=== PATIENT | male | born 1980 | race Caucasian/White ===

== ENCOUNTER → 2020-07-25 | Outpatient (CLI) | payer OTHER | END | disposition home or self-care (01) | LOC: STAR 10:59 | PROVIDERS: ATTEND Anesthesiology | DX: Z01.818 Encounter for other preprocedural examination (principal); Z20.828 Contact with and (suspected) exposure to other viral communicable diseases; M51.86 Other intervertebral disc disorders, lumbar region | CPT/HCPCS: 36415; 87635 ==

== ENCOUNTER 2020-07-31 10:32 | Day surgery (SDC) | payer OTHER ==
[~2020-07-31] VITALS: Ht 185.4 cm; Wt 109.1 kg
[~2020-07-31 10:32] MED LIST: BACITRACIN 50,000 UNIT ONE; BACITRACIN OINT 500U/GM, 15 GM ONE; BUPIVACAINE/PF 0.5% ONE; EPINEPHRINE 1 MG/ML, 1ML ONE; THROMBIN 20,000 UNIT VIAL TP ONE
[2020-07-31] MEDS ORDERED: VANCOMYCIN PMX 1GM/200ML 200 ML IV STA (10:49)
[2020-07-31] MEDS ORDERED: PLEASE ENTER ALLERGIES MC SCH (11:00)
[2020-07-31] MEDS ORDERED: PLEASE ENTER HEIGHT AND WEIGHT MC SCH (11:00)
[2020-07-31 11:06] VITALS: BP 130/72
[2020-07-31] MEDS ORDERED: CLARITIN PO (11:06)
[2020-07-31] MEDS ORDERED: NEXIUM PO (11:06)
[2020-07-31] MEDS ORDERED: LACTATED RINGERS 1,000 ML IV SCH ×2 (11:30→19:00)
[2020-07-31] MEDS ORDERED: CHLORHEXIDINE 15 ML UDC MM ONE (11:30)
[2020-07-31] MEDS ORDERED: MIDAZOLAM 1 MG/ML, 2ML ONE (12:56)
[2020-07-31] MEDS ORDERED: FENTANYL PF 250 MCG/5ML ONE ×2 (12:56→14:47)
[2020-07-31] MEDS ORDERED: ROCURONIUM 10MG/ML,5ML ONE (13:13)
[2020-07-31] MEDS ORDERED: PROPOFOL 10 MG/ML, 20ML ONE (13:13)
[2020-07-31] MEDS ORDERED: GLYCOPYRROLATE 0.2MG/1ML, 5ML ONE (13:13)
[2020-07-31] MEDS ORDERED: CEFAZOLIN 1,000 MG ONE (13:13)
[2020-07-31] MEDS ORDERED: NEOSTIGMINE 1 MG/ML, 10ML ONE (13:13)
[2020-07-31] MEDS ORDERED: ONDANSETRON 2MG/ML, 2ML IVPush PRN ×2 (14:00→19:30)
[2020-07-31] MEDS ORDERED: morphine SULFATE 10 MG/ML, 1ML IVPush PRN (14:00)
[2020-07-31] MEDS ORDERED: HYDROmorphone 1 MG/ML, 1ML INJ IVPush PRN (14:00)
[2020-07-31] MEDS ORDERED: hydrALAzine 20 MG/ML, 1ML IV PRN (14:00)
[2020-07-31] MEDS ORDERED: ACETAMINOPHEN 325 MG TABLET PO PRN (14:00)
[2020-07-31] MEDS ORDERED: MEPERIDINE/PF 25MG/0.5ML IVPush PRN (14:00)
[2020-07-31] MEDS ORDERED: OXYcodone 5 MG/5 ML ORAL.SOL UDC PO PRN (14:00)
[2020-07-31] MEDS ORDERED: LABETALOL 5MG/ML, 20ML IV PRN (14:00)
[2020-07-31] MEDS ORDERED: FENTANYL PF 100 MCG/2ML ONE (17:36)
[2020-07-31] MEDS ORDERED: OXYcodone 5 MG/5 ML ORAL.SOL UDC ONE (17:36)
[2020-07-31] MEDS: FENTANYL PF 100 MCG/2ML IV PRN ×2 (17:46→18:01)
[2020-07-31] MEDS ORDERED: HYDROmorphone 1 MG/ML, 1ML INJ ONE (18:08)
[2020-07-31] MEDS ORDERED: OXYcodone/APAP 5/325MG TABLET PO PRN (19:30)
[2020-07-31] MEDS ORDERED: HYDROcodone/APAP 5/325 TABLET PO PRN (19:30)
[2020-07-31] MEDS ORDERED: LORATADINE 10 MG TABLET PO PRN (19:30)
[2020-07-31] MEDS ORDERED: MORPHINE SULFATE 4 MG/ML, 1ML IVPush PRN (19:30)
[2020-07-31] MEDS ORDERED: PANTOPRAZOLE 40MG TABLET PO PRN ×2 (19:30)
[2020-07-31] MEDS ORDERED: DIPHENHYDRAMINE 50 MG/ML, 1ML IVPush PRN (19:30)
[2020-07-31] MEDS ORDERED: HYDR-3246 PO (19:57)
[2020-07-31] MEDS ORDERED: CLIN300C8 PO (19:59)
[2020-07-31] MEDS ORDERED: METH750T87 PO (20:00)
== END 2020-07-31 20:40 | disposition home or self-care (01) ==
LOC: OUT 10:32 → 4NE 18:41 → OUT 20:40
PROVIDERS: ATTEND Neurological Surgery
DX: M51.16 Intervertebral disc disorders with radiculopathy, lumbar region (principal); M51.17 Intervertebral disc disorders with radiculopathy, lumbosacral region; M48.07 Spinal stenosis, lumbosacral region; K21.9 Gastro-esophageal reflux disease without esophagitis; Z79.899 Other long term (current) drug therapy; Z98.890 Other specified postprocedural states
CPT/HCPCS: 63030; 63035; 72100; 95938; 95941; J0171; J0690; J1170; J2250; J2704; J2710; J3010; J3370; J7120; G0378